=== PATIENT | female | born 1945 | race Caucasian/White ===

== ENCOUNTER 2017-05-22 05:46 | Emergency (ER) | payer OTHER, BC ==
[~2017-05-22] VITALS: Ht 160 cm; Wt 96.2 kg
[2017-05-22 05:53] VITALS: BP 10/103
--- NOTE | 2017-05-22 06:02 | NUR ---
BIB WHEELCHAIR TO ER BED 2
--- NOTE | 2017-05-22 06:05 | NUR ---
PATIENT PRESENTS TO ED WITH C/O PAIN IN BOTH KNEES HX: ASTHMA AND OA PT DENIES N/V/D; SKIN IS PINK/WARM/DRY; AAOX4 WITH EVEN AND STEADY GAIT; LUNGS CLEAR BL; HR EVEN AND REGULAR; PT DENIES ANY FEVER, CP, SOB, OR COUGH AT THIS TIME; PATIENT STATES PAIN OF 10/10 AT THIS TIME; VSS; PATIENT POSITIONED FOR COMFORT; HOB ELEVATED; BEDRAILS UP X2; BED DOWN. ER MD MADE AWARE OF PT STATUS.
[2017-05-22] MEDS ORDERED: ONDANSETRON 4 MG/2 ML VIAL IVP ONE (06:15)
[2017-05-22] MEDS ORDERED: MORPHINE SULFATE 4 MG/ML SYR IVP ONE (06:15)
--- NOTE | 2017-05-22 07:20 | NUR ---
Received report from Gabbi Parra. Pt is aox4. GCS=15. Pt sts pain is at 8/10. Notified er md RANGEL. Awaiting new orders. Will continue to monitor.
[2017-05-22] MEDS ORDERED: KETOROLAC 30 MG/ML VIAL IVP ONE (07:45)
--- NOTE | 2017-05-22 08:40 | NUR ---
Patient discharged with v/s stable. Written and verbal after care instructions given and explained. Patient alert, oriented and verbalized understanding of instructions. Ambulatory with steady gait. All questions addressed prior to discharge. ID band removed. Patient advised to follow up with PMD. Rx of Arthrotec and albuterol given. Patient educated on indication of medication including possible reaction and side effects. Opportunity to ask questions provided and answered.
--- NOTE | 2017-05-22 08:40 | NUR ---
pt given homeless/community resource packet. pt verbalized understanding of packet.
[2017-05-22 08:41] VITALS: BP 121/81
== END 2017-05-22 08:40 | disposition home or self-care (01) ==
LOC: MED 05:46
DX: M17.12 Unilateral primary osteoarthritis, left knee (principal); Z59.0 Homelessness; J45.909 Unspecified asthma, uncomplicated; I10 Essential (primary) hypertension
CPT/HCPCS: 73562; 96374; 96375; 99284; J1885; J2270; J2405